=== PATIENT | male | born 1950 | race Caucasian/White ===

== ENCOUNTER 2020-09-26 13:54 | Observation (INO) | payer MEDICARE, OTHER ==
[~2020-09-26] VITALS: Ht 185.4 cm; Wt 105.7 kg
[2020-09-26] MEDS ORDERED: SODIUM CHLORIDE 0.9% 1000ML 1,000 ML IV STA (14:31)
[2020-09-26] MEDS ORDERED: ASPIRIN 81 MG CHEW TAB PO STA (14:31)
[2020-09-26] MEDS ORDERED: METOPROLOL TARTRATE 25 MG TAB PO ONE (14:45)
[2020-09-26 15:01] LABS: BASOPHILS # (AUTO) 0.1 (0.0-0.1); BASOPHILS % 0.5 % (0.0-1.0); EOSINOPHILS # (AUTO) 0.4 (0.0-0.4); EOSINOPHILS % 3.7 % (0.0-6.0); HEMATOCRIT 47.1 % (38.2-49.6); HEMOGLOBIN 15.3 g/dL (14.0-18.0); LYMPHOCYTES # (AUTO) 2.8 (1.0-3.2); LYMPHOCYTES % 23.9 % (18.0-39.1); MEAN CORPUSCULAR HGB CONC 32.5 g/dL (31-35); MEAN CORPUSCULAR VOLUME 86.1 fL (81-99); MONOCYTES # (AUTO) 0.9 (0.2-0.8); MONOCYTES % 7.6 % (4.4-11.3); NEUTROPHILS # (AUTO) 7.4 (2.1-6.9); PLATELET COUNT 336 x10e3/uL (140-360); RED BLOOD COUNT 5.47 x10e6/uL (4.3-5.7); RED CELL DISTRIBUTION WIDTH 13.3 % (11.7-14.4)
[2020-09-26 15:11] LABS: INR 0.96; PARTIAL THROMBOPLASTIN TIME 34.2 seconds (23.8-35.5); PROTHROMBIN TIME 13.3 seconds (11.9-14.5)
[2020-09-26 15:21] LABS: ALANINE AMINOTRANSFERASE 29 IU/L (0-55); ALBUMIN 4.7 g/dL (3.5-5.0); ALBUMIN/GLOBULIN RATIO 1.2 (0.8-2.0); ALKALINE PHOSPHATASE 55 IU/L (40-150); ANION GAP 18.4 mmol/L (8-16); BLOOD UREA NITROGEN 20 mg/dL (7-26); BUN/CREATININE RATIO 17 (6-25); CALCIUM 9.9 mg/dL (8.4-10.2); CARBON DIOXIDE 22 mmol/L (22-29); CHLORIDE 102 mmol/L (98-107); CREATINE KINASE 195 IU/L (30-200); EST GLOMERULAR FILTRATION RATE 60 ML/MIN (60-); GLUCOSE 166 mg/dL (74-118); MAGNESIUM 1.9 MG/DL (1.3-2.1); POTASSIUM 4.4 mmol/L (3.5-5.1); SODIUM 138 mmol/L (136-145)
[2020-09-26 15:40] LABS: THYROID STIMULATING HORMONE 2.567 uIU/mL (0.350-4.940)
[2020-09-26 17:34] LABS: AMPHETAMINES SCREEN,URINE NEGATIVE (NEGATIVE); BENZODIAZEPINES SCREEN,URINE NEGATIVE (NEGATIVE); CLARITY,URINE CLEAR (CLEAR); COLOR,URINE YELLOW (YELLOW); LEUKOCYTE ESTERASE ,URINE NEGATIVE (NEGATIVE); NITRITE,URINE NEGATIVE (NEGATIVE); PHENCYCLIDINE SCREEN,URINE NEGATIVE (NEGATIVE)
[2020-09-26 17:35] LABS: KETONES,URINE NEGATIVE (NEGATIVE); MUCUS,URINE FEW (RARE); PROTEIN,URINE DIPSTICK NEGATIVE (NEGATIVE); RBC,URINE 0-5 /HPF (0-5); URINE UROBILINOGEN 0.2 mg/dL (0.2 - 1); WBC,URINE (MAN) 0-5 /HPF (0-5)
[2020-09-26] MEDS ORDERED: ONDANSETRON HCL INJ 2MG/ML 2ML 2 MG/ML VIAL IV PRN (18:00)
[2020-09-26] MEDS ORDERED: SODIUM CHLORIDE 0.9% 1000ML 1,000 ML IV SCH (18:00)
[2020-09-26] MEDS ORDERED: MORPHINE SULFATE INJ 2 MG/ML SYR IV PRN (18:00)
[2020-09-26] MEDS ORDERED: ACETAMINOPHEN 325 MG TAB PO PRN (19:00)
[2020-09-26] MEDS ORDERED: TEMAZEPAM 7.5 MG CAP PO PRN (19:00)
[2020-09-26] MEDS ORDERED: POLYETHYLENE GLYCOL 3350 17 GM PACK PO PRN (19:00)
[2020-09-26] MEDS ORDERED: METOPROLOL TARTRATE INJ 1 MG/ML VIAL IV PRN (19:00)
[2020-09-26 19:18] VITALS: BP 145/85
[2020-09-26 20:00] VITALS: BP 145/85
[2020-09-26] MEDS: METOPROLOL TARTRATE 25 MG TAB PO SCH (22:00)
[2020-09-26] MEDS: FAMOTIDINE 20 MG/2 ML VIAL IV SCH (22:13)
[2020-09-26] MEDS ORDERED: GLYBURIDE5 MG PO (22:24)
[2020-09-26] MEDS ORDERED: METFORMIN HCL500 MG PO (22:24)
[2020-09-26] MEDS ORDERED: ATORVASTATIN CA20 MG PO (22:24)
[2020-09-27 00:31] VITALS: BP 96/54
[2020-09-27] MEDS ORDERED: LOPRESSOR25 MG PO (04:12)
[2020-09-27] MEDS ORDERED: ASPIRIN EC81 MG PO (04:12)
[2020-09-27] MEDS: FAMOTIDINE 20 MG/2 ML VIAL IV SCH ×2 (05:09→17:03)
[2020-09-27 05:40] VITALS: BP 127/76
[2020-09-27 06:33] LABS: BASOPHILS % 0.5 % (0.0-1.0); EOSINOPHILS # (AUTO) 0.5 (0.0-0.4); EOSINOPHILS % 5.9 % (0.0-6.0); HEMATOCRIT 43.1 % (38.2-49.6); HEMOGLOBIN 13.8 g/dL (14.0-18.0); LYMPHOCYTES # (AUTO) 2.4 (1.0-3.2); LYMPHOCYTES % 30.3 % (18.0-39.1); MEAN CORPUSCULAR VOLUME 87.4 fL (81-99); MONOCYTES # (AUTO) 0.9 (0.2-0.8); MONOCYTES % 10.8 % (4.4-11.3); NEUTROPHILS # (AUTO) 4.1 (2.1-6.9); NEUTROPHILS % 52.2 % (38.7-80.0); PLATELET COUNT 274 x10e3/uL (140-360); RED BLOOD COUNT 4.93 x10e6/uL (4.3-5.7); RED CELL DISTRIBUTION WIDTH 13.6 % (11.7-14.4)
[2020-09-27 07:11] LABS: ALANINE AMINOTRANSFERASE 23 IU/L (0-55); ALBUMIN 3.6 g/dL (3.5-5.0); ALBUMIN/GLOBULIN RATIO 1.1 (0.8-2.0); ALKALINE PHOSPHATASE 44 IU/L (40-150); ANION GAP 15.2 mmol/L (8-16); BLOOD UREA NITROGEN 16 mg/dL (7-26); BUN/CREATININE RATIO 17 (6-25); CALCIUM 8.5 mg/dL (8.4-10.2); CARBON DIOXIDE 23 mmol/L (22-29); CHLORIDE 109 mmol/L (98-107); CHOL/HDL RATIO 3.6 (3.9-4.7); CHOLESTEROL 100 MD/DL (0-199); CREATININE, SERUM 0.92 mg/dL (0.72-1.25); EST GLOMERULAR FILTRATION RATE > 60 ML/MIN (60-); GLUCOSE 120 mg/dL (74-118); HDL CHOLESTEROL 28 MG/DL (40-60); LDL CHOLESTEROL 49 MG/DL (60-130); POTASSIUM 4.2 mmol/L (3.5-5.1); SODIUM 143 mmol/L (136-145); TRIGLYCERIDES 116 MG/DL (0-149)
[2020-09-27 07:27] LABS: PHOSPHORUS 3.3 MG/DL (2.3-4.7)
[2020-09-27 07:47] LABS: CREATINE KINASE MB 3.8 ng/mL (0-5.0)
[2020-09-27 07:57] VITALS: BP 114/82
[2020-09-27] MEDS ORDERED: GLYBURIDE 5 MG TAB PO SCH (08:00)
[2020-09-27 08:20] VITALS: BP 114/82
[2020-09-27] MEDS: METFORMIN HCL 850 MG TAB PO SCH ×2 (08:47→16:56)
[2020-09-27] MEDS: METOPROLOL TARTRATE 25 MG TAB PO SCH (08:48)
[2020-09-27] MEDS: DOCUSATE SODIUM 100 MG CAP PO SCH ×2 (08:48→16:56)
[2020-09-27] MEDS ORDERED: ASPIRIN 81 MG ENTERIC COATED PO SCH (09:00)
[2020-09-27 12:00] VITALS: BP 124/72
[2020-09-27 12:20] LABS: CREATINE KINASE MB 3.4 ng/mL (0-5.0)
[2020-09-27] MEDS ORDERED: GLIMEPIRIDE1 MG PO (14:20)
[2020-09-27 16:00] VITALS: BP 141/81
[2020-09-27] MEDS ORDERED: ATORVASTATIN 40 MG TAB PO SCH (21:00)
[2020-09-28] MEDS ORDERED: GLIMEPIRIDE 2 MG TAB PO SCH (07:30)
[2020-09-28] MEDS ORDERED: NON-FORMULARY MEDICATION (Glimepiride 1 MG) PO SCH (09:00)
== END 2020-09-27 17:35 | disposition home or self-care (01) ==
LOC: ER 14:43 → ERHOLD 17:46 → MED/SURG3 18:45
PROVIDERS: ADMIT Internal Medicine; ATTEND Internal Medicine
DX: I48.91 Unspecified atrial fibrillation (principal); R00.0 Tachycardia, unspecified; Z87.891 Personal history of nicotine dependence; D72.829 Elevated white blood cell count, unspecified; Z56.3 Stressful work schedule; Z20.822 Contact with and (suspected) exposure to COVID-19; E11.9 Type 2 diabetes mellitus without complications; Z82.49 Family history of ischemic heart disease and other diseases of the circulatory system; E78.5 Hyperlipidemia, unspecified; Z86.16 Personal history of COVID-19; I10 Essential (primary) hypertension
CPT/HCPCS: 36415 ×2; 70450; 71045; 80053 ×2; 80061; 80307; 81001; 82550 ×2; 82553 ×2; 82948 ×2; 83036; 83735 ×2; 83880; 84100; 84443; 84484 ×2; 85025 ×2; 85379; 85610; 85730; 87086; 93005 ×2; 93306; 99284; G0378 ×2; J7030 ×2; U0002

== ENCOUNTER → 2022-02-14 | Outpatient (CLI) | payer MEDICARE, OTHER ==
[~2022-02-14] MED LIST: ASPIRIN EC81 MG PO; ATORVASTATIN CA20 MG PO; GLIMEPIRIDE1 MG PO; GLYBURIDE5 MG PO; LEVALBUTEROL HCL SOLN NEBU 1.25 MG/3 ML NEB ONE; LOPRESSOR25 MG PO; METFORMIN HCL500 MG PO
== END ==
LOC: RESP 12:37
PROVIDERS: ATTEND Internal Medicine Critical Care Medicine
DX: R05.9 Cough, unspecified (principal); U07.1 COVID-19; J18.9 Pneumonia, unspecified organism; J45.909 Unspecified asthma, uncomplicated; J42 Unspecified chronic bronchitis; E66.9 Obesity, unspecified
CPT/HCPCS: 94060; 94640; 94727; 94729

== ENCOUNTER → 2022-05-08 | Day surgery (SDC) | payer MEDICARE, OTHER ==
[2022-05-06 09:18] LABS: BASOPHILS % 0.4 % (0.0-1.0); EOSINOPHILS # (AUTO) 0.3 (0.0-0.4); EOSINOPHILS % 4.4 % (0.0-6.0); HEMATOCRIT 47.3 % (38.2-49.6); HEMOGLOBIN 15.3 g/dL (14.0-18.0); LYMPHOCYTES # (AUTO) 2.2 (1.0-3.2); LYMPHOCYTES % 29.8 % (18.0-39.1); MEAN CORPUSCULAR HEMOGLOBIN 28.5 pg (28-32); MEAN CORPUSCULAR HGB CONC 32.3 g/dL (31-35); MEAN CORPUSCULAR VOLUME 88.2 fL (81-99); MONOCYTES # (AUTO) 0.7 (0.2-0.8); MONOCYTES % 9.6 % (4.4-11.3); NEUTROPHILS # (AUTO) 4.2 (2.1-6.9); NEUTROPHILS % 55.7 % (38.7-80.0); PLATELET COUNT 221 x10e3/uL (140-360); RED BLOOD COUNT 5.36 x10e6/uL (4.3-5.7); RED CELL DISTRIBUTION WIDTH 13.2 % (11.7-14.4)
[2022-05-06 09:36] LABS: ALBUMIN 4.5 g/dL (3.5-5.0); ALBUMIN/GLOBULIN RATIO 1.3 (0.8-2.0); ANION GAP 14.5 mmol/L (8-16); CALCIUM 9.9 mg/dL (8.4-10.2); CHOL/HDL RATIO 6.9 (3.9-4.7); CREATININE, SERUM 1.11 mg/dL (0.72-1.25); POTASSIUM 4.5 mmol/L (3.5-5.1)
[~2022-05-08] VITALS: Ht 185.4 cm; Wt 108.0 kg
[2022-05-08] VITALS (9 sets, daily range): BP systolic 123–149; BP diastolic 70–128
[~2022-05-08] MED LIST changes: +ALBUTEROL0.63 MG/3 NEB; +FENTANYL CITRATE/PF 100MCG/2 ML INJ ONE; +HEPARIN SOD (PORCINE) 1000 UNIT/ML 30ML ONE; +HEPARIN SOD/SOD CHLORIDE 2,000 ML ONE; +IOPAMIDOL 370 MG/ML 100 ML INFUS..BTL INJ ONE; -LEVALBUTEROL HCL SOLN NEBU 1.25 MG/3 ML NEB ONE; +LIDOCAINE HCL 2% LOCAL INJ 5 ML SDV VIAL INJ ONE; +MIDAZOLAM HCL 2 MG/2 ML VIAL ONE; +NITROGLYCERIN/D5W 200 MCG/ML 250 ML ONE; +PROTONIX20 MG PO; +SODIUM CHLORIDE 0.9% 1000ML 1,000 ML ONE; +VERAPAMIL HCL 2.5 MG/ML 2 ML VIAL ONE
== END | disposition home or self-care (01) ==
LOC: CATH LAB 07:23
PROVIDERS: ATTEND Internal Medicine
DX: I25.118 Atherosclerotic heart disease of native coronary artery with other forms of angina pectoris (principal); R94.39 Abnormal result of other cardiovascular function study; I10 Essential (primary) hypertension; E78.5 Hyperlipidemia, unspecified; E11.9 Type 2 diabetes mellitus without complications; Z71.82 Exercise counseling; Z71.3 Dietary counseling and surveillance; Z01.812 Encounter for preprocedural laboratory examination; Z20.822 Contact with and (suspected) exposure to COVID-19; Z79.84 Long term (current) use of oral hypoglycemic drugs; Z79.899 Other long term (current) drug therapy; Z68.31 Body mass index [BMI] 31.0-31.9, adult; Z87.891 Personal history of nicotine dependence; Z82.49 Family history of ischemic heart disease and other diseases of the circulatory system
CPT/HCPCS: 0223U; 36415 ×2; 80053; 80061; 82948; 85025; 93458; C1887; J1644; J2001; J2250; J3010; J7030; Q9967; 99152